=== PATIENT | female | born 1975 | race African-American/Black ===

== ENCOUNTER 2016-11-05 08:33 | Emergency (ER) | payer MEDICAID ==
[~2016-11-05] VITALS: Ht 149.9 cm; Wt 79.4 kg
[2016-11-05 08:42] VITALS: BP 135/93; PULSE 68; RESP 20; TEMP 97.2; O2SAT 100
--- NOTE | 2016-11-05 08:47 | NUR ---
Pt placed to ER bed 7. Report given to RN.
--- NOTE | 2016-11-05 08:50 | NUR ---
JULISA JONES AT BEDSIDE FOR EVAL.
--- NOTE | 2016-11-05 08:55 | NUR ---
Pt presents with waking up this morning with [place]en [place] left eye and noticed that it was red. No visual deficits in either eye. No contact lens. No pain. Addendum: 11/05/16 at 0908 by LETITIAUPTA RAMA.
[2016-11-05 08:58] VITALS: BP 130/87; PULSE 70; RESP 20; TEMP 97.3
--- NOTE | 2016-11-05 09:05 | NUR ---
Patient given written and verbal discharge instructions and verbalizes understanding. ER MD discussed with patient the results and treatment provided. Given copies of tests performed in ER. Patient in stable condition. ID armband removed. Rx of sulfacetamide and ibuprofen given. Patient educated on pain management and to follow up with in 2-3 days.Pain Scale . Opportunity for questions provided and answered. Dischagred home via private auto by herself. Ambulataed to car.
== END 2016-11-05 08:58 | disposition home or self-care (01) ==
LOC: SED 08:33
DX: H10.9 Unspecified conjunctivitis (principal)
CPT/HCPCS: 99283

== ENCOUNTER 2018-02-11 16:05 | Emergency (ER) | payer MEDICAID ==
[~2018-02-11] VITALS: Ht 149.9 cm; Wt 81.6 kg
[2018-02-11 16:09] VITALS: BP_SYST 158
[2018-02-11 16:36] LABS: BILIRUBIN,URINE NEGATIVE (NEGATIVE); CLARITY/URINE CLEAR (CLEAR); COLOR,URINE YELLOW (YELLOW); GLUCOSE,URINE NEGATIVE (NEGATIVE); KETONES,URINE NEGATIVE (NEGATIVE); LEUKOCYTE ESTERASE ,URINE NEGATIVE (NEGATIVE); NITRITE, URINE NEGATIVE (NEGATIVE); PH,URINE 5.5 (5.0-8.0); PROTEIN URINE TRACE (NEGATIVE)
[2018-02-11 16:37] LABS: BLOOD, URINE TRACE (NEGATIVE)
[2018-02-11 16:42] LABS: BACTERIA,URINE FEW /HPF (None Seen); MUCUS,URINE 1+ /LPF (None Seen); RBC,URINE 0-3 /HPF (0-3); WBC,URINE 0-3 /HPF (0-3)
[2018-02-11 17:00] VITALS: BP_SYST 145
== END 2018-02-11 17:00 | disposition home or self-care (01) ==
LOC: SED 16:05
DX: N39.0 Urinary tract infection, site not specified (principal)
CPT/HCPCS: 81000-TC; 99283